=== PATIENT | female | born 1985 | race Caucasian/White ===

== ENCOUNTER 2022-11-13 05:06 | Emergency (ER) | payer SELFPAY ==
[~2022-11-13] VITALS: Ht 157.5 cm; Wt 64.0 kg
[2022-11-13] MEDS ORDERED: KETOROLAC TROMETHAMINE 15 MG INJ IVP ONE (05:30)
[2022-11-13] MEDS ORDERED: ONDANSETRON 4 MG/2 ML VIAL IV ONE (05:30)
[2022-11-13] MEDS ORDERED: HYDROMORPHONE 1 MG/1 ML DISP.SYRIN IV ONE (05:30)
[2022-11-13 05:32] LABS: *BILIRUBIN,URIN NEGATIVE (NEGATIVE); *COLOR,URINE YELLOW (YELLOW); *KETONES,URINE NEGATIVE (NEGATIVE); *PROTEIN,URINE NEGATIVE (NEGATIVE); *UROBILINOGEN,URINE 0.2 E.U./dl (NORMAL); LEUKOCYTE ESTERASE ,URINE TRACE (NEGATIVE); NITRITE, URINE NEGATIVE (NEGATIVE); PH,URINE 5.5 (5.0-8.0); UGLUCOSE NEGATIVE (NEGATIVE)
[2022-11-13 05:36] LABS: *BLOOD, URINE TRACE LYSED (NEGATIVE); *CLARITY,URINE SLIGHTLY CLOUDY (CLEAR)
[2022-11-13 05:39] LABS: RBC,URINE 0-3 /HPF (0-3); WBC,URINE 50-80 /HPF (0-3)
[2022-11-13 05:40] LABS: BACTERIA,URINE MODERATE /HPF (NONE SEEN); SQUAMOUS EPITHELIAL CELL,UR FEW /HPF (NONE SEEN)
[2022-11-13] MEDS ORDERED: ONDANSETRON 4 MG/2 ML VIAL ONE (05:41)
[2022-11-13] MEDS ORDERED: HYDROMORPHONE 1 MG/1 ML DISP.SYRIN ONE (05:42)
[2022-11-13] MEDS ORDERED: KETOROLAC TROMETHAMINE 30 MG INJ ONE (05:42)
[2022-11-13] MEDS ORDERED: ONDA4TAB5 PO (05:55)
[2022-11-13] MEDS ORDERED: HYDR-3980 PO (05:55)
[2022-11-13] MEDS ORDERED: CEPH500T PO (05:55)
[2022-11-13] MEDS ORDERED: NITR-84 PO (05:55)
[2022-11-13] MEDS ORDERED: CEFTRIAXONE /D5W 50ML IVPB **ER PYXIS IV ONE (05:58)
[2022-11-13] MEDS ORDERED: NITROFURANTOIN/NITROFURAN MAC 100 MG CAPSULE PO ONE ×2 (05:58→06:00)
[2022-11-13] MEDS ORDERED: CEFTRIAXONE 1 G in IV DEXTROSE 5% 50 ML IV ONE (06:00)
[2022-11-13 06:09] LABS: *URINE HCG, QUAL NEGATIVE (NEGATIVE)
[2022-11-13 06:13] LABS: BASOPHILS % (AUTO) 0.3 % (0.0-2.0); EOSINOPHILS % (AUTO) 0.3 % (0.0-7.0); HEMATOCRIT 38.3 % (31.2-41.9); HEMOGLOBIN 12.9 g/dL (10.9-14.3); LYMPHOCYTES # (AUTO) 0.5 K/uL (0.8-4.8); LYMPHOCYTES % (AUTO) 4.8 % (20.5-51.5); MEAN CORPUSCULAR HEMOGLOBIN 29.6 uug (24.7-32.8); MEAN CORPUSCULAR HGB CONC 34 g/dL (32.3-35.6); MONOCYTES # (AUTO) 0.1 K/uL (0.1-1.30); MONOCYTES % (AUTO) 0.6 % (0.0-11.0); NEUTROPHILS # (AUTO) 10.7 K/uL (1.8-8.9); PLATELET COUNT (AUTO) 269 K/uL (179-408); RED BLOOD CELL COUNT(AUTO) 4.35 MIL/uL (3.63-4.92); RED CELL DISTRIBUTION WIDTH 12.8 % (12.3-17.7); WHITE BLOOD COUNT (AUTO) 11.3 K/uL (3.8-11.8)
[2022-11-13 06:14] LABS: DIFFERENTIAL COMMENT 1
[2022-11-13 06:57] LABS: CALCIUM 9.2 mg/dL (8.5-10.1); CREATININE 1.1 mg/dL (0.6-1.3); POTASSIUM 3.5 mmol/L (3.5-5.1)
[2022-11-13 07:03] LABS: ALBUMIN 4.4 g/dL (3.4-5.0); BILIRUBIN,DIRECT 0.2 mg/dL (0.0-0.2); BILIRUBIN,TOTAL 0.5 mg/dL (0.2-1.0); TOTAL PROTEIN, SERUM 8.2 g/dL (6.4-8.2)
[2022-11-13 07:05] VITALS: BP 109/72; TEMP 98; O2SAT 100
== END 2022-11-13 07:07 | disposition home or self-care (01) ==
LOC: ER 05:10
DX: N12 Tubulo-interstitial nephritis, not specified as acute or chronic (principal); Z79.899 Other long term (current) drug therapy
CPT/HCPCS: 99284; 96374; 96375; 80076; 80048; 81001; 84703; 83690; 85025; 36415; J0696; J1885; J2405; J1170; A4663